=== PATIENT | male | born 1990 | race Caucasian/White ===

== ENCOUNTER → 2023-01-16 23:29 | Outpatient (CLI) | payer MEDICAID, SELFPAY ==
[2023-01-16 17:19] LABS: Basophils # 0.1 K/mm3 (0-0.2); Basophils % 0.7 % (0.1-2.0); Eosinophils # 0.3 K/mm3 (0.0-0.4); Eosinophils % 3.3 % (0.1-12.0); Hematocrit 46.1 % (42.0-52.0); Hemoglobin 15.6 g/dL (14.1-18.0); Lymphocytes # 2.6 K/mm3 (0.7-4.5); Lymphocytes % 27.5 % (10-50); Mean Corpuscular HGB Conc 33.9 g/dL (31.8-35.4); Mean Corpuscular Hemoglobin 30.2 pg (27.0-31.2); Mean Corpuscular Volume 89.2 fl (80-94); Mean Platelet Volume 7.9 fl (7.4-10.4); Monocytes # 0.6 K/mm3 (0.1-1.0); Monocytes % 6.4 % (1.7-9.3); Neutrophils # 5.7 K/mm3 (1.8-7.8); Platelet Count 310 K/mm3 (142-424); Red Blood Count 5.17 M/mm3 (4.60-6.20); Red Cell Distribution Width 12.8 % (11.5-17.5); White Blood Count 9.3 K/mm3 (4.8-10.8)
[2023-01-16 17:59] LABS: Alanine Aminotransferase 16 U/L (12-78); Albumin Level 4.6 g/dl (3.5-5.0); Albumin/Globulin Ratio 1.6 (1.1-1.8); Alkaline Phosphatase 91 U/L (38-126); Anion Gap 13.5 mEq/L (5-15); Aspartate Amino Transferase 26 U/L (17-59); Bilirubin,Total 0.4 mg/dl (0.2-1.3); Blood Urea Nitrogen 11 mg/dl (9-20); Calcium 9.3 mg/dl (8.4-10.2); Carbon Dioxide 29 mmol/L (22.0-30.0); Chloride 103 mmol/L (98-107); Chol/HDL Ratio 7.4 (1-3.5); Cholesterol 207 mg/dl (140-200); Estimated Glomerular Filt Rate 97 ml/min (>60); GFR (African American) 118 ML/MIN (>60); Globulin 2.8 g/dL (1.3-3.2); Glucose 92 mg/dl (74-100); HDL Cholesterol 28 mg/dl (40-60); Potassium 4.5 mmoL/L (3.5-5.1); Sodium 141 mmol/L (136-145); Total Protein,Serum 7.4 g/dl (6.3-8.2); Triglycerides 196 mg/dl (30-150); VLDL Cholesterol 39 mg/dL (0-40)
[2023-01-16 18:10] LABS: Direct LDL Cholesterol 128.48 mg/dL (100-129)
[2023-01-16 18:15] LABS: T4 (Thyroxine) 11.6 ug/dl (5.53-11.0); Triiodothryronine (T3) Uptake 29 % (23.5-40.5)
[2023-01-16 18:29] LABS: Thyroid Stimulating Hormone 1.86 uIU/mL (0.465-4.68); Troponin I < 0.01 ng/ml (0.00-0.034)
[2023-01-16 18:51] LABS: Vitamin B12 685 pg/mL (239-931)
[2023-01-16 19:22] LABS: Hemoglobin A1C 5.2 % (4.0-6.0)
[2023-01-16 19:49] LABS: 25-OH Vitamin D, Total 26.3 ng/mL (30-100)
[2023-01-18 09:53] LABS: Testosterone,Total 728 ng/dL (264-916)
== END ==
PROVIDERS: PCP Nurse Practitioner Family; Visit Provider Nurse Practitioner Family
DX: R55 Syncope and collapse (principal); E55.9 Vitamin D deficiency, unspecified; Z79.899 Other long term (current) drug therapy
CPT/HCPCS: 80053; 80061; 82306; 82607; 83036; 84403; 84436; 84439; 84443; 84479; 84484; 85025

== ENCOUNTER → 2023-01-23 09:12 | Outpatient (CLI) | payer MEDICAID, SELFPAY ==
--- NOTE | 2023-01-23 09:18 | CT_ITS ---
FINAL REPORT TECHNIQUE: Axial CT images were performed through the head. Coronal reformatted images were submitted. This study was performed with techniques to keep radiation doses as low as reasonably achievable (ALARA). Individualized dose reduction techniques using automated exposure control or adjustment of mA and/or kV according to the patient's size were employed. CLINICAL HISTORY: head trauma, fell off porch 1 week ago, hit head and left side of face, possibly blacked out FINDINGS: The ventricles are normal in size. There is no evidence of hemorrhage. There is no mass or edema identified. There is no abnormal extra-axial fluid seen. The sinuses are well aerated. IMPRESSION: No acute intracranial process. Reviewed, Interpreted and Dictated by Beny Campbell MD Transcribed by Yani Smith Authenticated and . [facility]
== END ==
PROVIDERS: PCP Nurse Practitioner Family; Visit Provider Pediatrics
DX: S09.90XA Unspecified injury of head, initial encounter (principal); W19.XXXA Unspecified fall, initial encounter
CPT/HCPCS: 70450

== ENCOUNTER → 2023-02-09 12:49 | Outpatient (CLI) | payer MEDICAID, SELFPAY ==
--- NOTE | 2023-02-09 12:53 | CA_ITS ---
APPROVED REPORT EXAM: Comprehensive 2D, Doppler, and color-flow Echocardiogram Brazing Machine Tender: Carolina Koroma RVT Ht: 5 ft 6 in Wt: 135lbs BSA: 1.69 BP: 108/72 mmHg Indications: SYNCOPE 2D Dimensions LVOT 2.08 cm (M/F) 1.5-2.5 M-Mode Dimensions RVDd 2.22 cm (0.9-2.6) LA Diam 3.09 cm (1.9-4.0) LVDd 4.79 cm (3.5-5.7) Ao Diam 3.08 cm (2.0-3.7) LVDs 3.44 cm (3.5-5.7) IVSd 0.72 cm (0.6-1.1) PWd 0.53 cm (0.6-1.1) EF (Teich) 54.40% FS 28.20% EDV (Teich) 107.00 mL TAPSE 2.13 (<1.7) ESV (Teich) 48.80 mL LV Diastology E Decel Time 217.00 (160-240 msec) E/A Ratio 0.9 MED E' 8.40 (< 7 cm/sec) E'/MED E' Ratio 9.25 (>14) LAT E' 12.40 (<10 cm/sec) E/LAT E' Ratio 6.27 (>14) Aortic Valve AO Peak GR. 5.50 mmHg Mitral Valve MV E Max Rex. 78.00 (40-130 cm/s) MV A Velocity 89.00 (40-130 cm/s) E/A Ratio 0.87 MV Decel. Time 217.00 (160-240 ms) MV PHT 63.00 ms Pulmonary Valve PV Peak Velocity 76.00 (50-150 cm/s) Tricuspid Valve TR P. Velocity 216.00 cm/s RAP Estimate 10.00 mmHg RVSP 28.60 mmHg Left Ventricle The left ventricle is normal size. Left ventricular systolic function is low-normal. There is normal left ventricular wall thickness. There is borderling hypokinesis present. The left ventricular diastolic function is normal. LVEF is 50% Right Ventricle The right ventricle is mildly dilated. The right ventricular systolic function is normal. Atria The left atrium size is normal. The right atrium size is normal. There is no Doppler evidence of interatrial shunt. Aortic Valve The aortic valve opens well. There is no aortic valvular stenosis. No aortic regurgitation is present. Mitral Valve The mitral valve is normal in structure. No evidence of mitral valve stenosis. No Mitral Regurgitation. Tricuspid Valve The tricuspid valve leaflets are thin and pliable. Trace tricuspid regurgitation. There is insufficient TR jet to estimate RVSP. Pulmonic Valve The pulmonary valve is normal in structure. Trace pulmonic regurgitation. Great Vessels The aortic root is normal in size. The ascending aorta is normal in size. IVC is normal in size and collapses >50% with inspiration. Pericardium There is no pericardial effusion. Other Information Study Quality: Fair Conclusion Low-normal LV systolic function (LVEF 50%) Mild RV dilation with normal RV function No significant valvular disease Electronically signed by : Evie Turpin, 02/12/2023 22:12:33
== END ==
PROVIDERS: PCP Nurse Practitioner Family; Visit Provider Nurse Practitioner Family
DX: R55 Syncope and collapse (principal)
CPT/HCPCS: 93306

== ENCOUNTER 2023-09-09 09:40 | Outpatient (CLI) | payer MEDICAID, SELFPAY ==
--- NOTE | 2023-09-09 09:41 | CA_ITS ---
APPROVED REPORT EXAM: Comprehensive 2D, Doppler, and color-flow Echocardiogram Bag Inspector: Francoise Hinkle, [facility], [place], RVS Ht: 5 ft 6 in Wt: 145lbs BSA: 1.74 BP: 110/84 mmHg Indications: Low normal EF 01/2023, Smoker, H/o Syncope 2D Dimensions IVSd 0.71 cm M: 0.6-1.2 LVEF (Visual) 55.80 % PWd 0.90 cm M: 0.6 - 1.2 LA Volume 28.30 mL LVDd 5.41 cm M: 4.2 - 5.9 LA Volume Index 16.17 mL/m2 (M/F) 16-34 LVDs 3.82 cm M: 2.5 - 4.0 M-Mode Dimensions RVDd 2.32 cm (0.9-2.6) LA Diam 3.08 cm (1.9-4.0) LVDd 4.35 cm (3.5-5.7) LVDs 3.79 cm (3.5-5.7) IVSd 0.91 cm (0.6-1.1) PWd 0.66 cm (0.6-1.1) EF (Teich) 43.80% EPSs 0.19 cm FS 21.70% EDV (Teich) 109.60 mL TAPSE 2.22 (<1.7) ESV (Teich) 61.60 mL LV Diastology E Decel Time 270 (160-240 msec) E/A Ratio 0.87 MED A' 12.00 cm/s LAT A' 11.00 cm/s Aortic Valve AoV Peak Rex. 136.0 (50-130 cm/s) AO Peak GR. 7.40 mmHg AO Mean GR. 4.30 (<5 mmHg) AO VTI 26.1 (18-25 cm) Mitral Valve MV A Velocity 93.0 (40-130 cm/s) E/A Ratio 0.87 Tricuspid Valve TR P. Velocity 234.00 cm/s RAP Estimate 10.00 mmHg RVSP 31.90 mmHg Left Ventricle The left ventricle is normal size. The left ventricular systolic function is normal. The left ventricular ejection fraction is within the normal range. There is normal left ventricular wall thickness. There is normal LV segmental wall motion. The left ventricular diastolic function is normal. LVEF is 55%. Right Ventricle The right ventricle is normal size. The right ventricular systolic function is normal. Atria The left atrium size is normal. The right atrium size is normal. There is no Doppler evidence of interatrial shunt. Aortic Valve The aortic valve is normal in structure. There is no aortic valvular stenosis. No aortic regurgitation is present. Mitral Valve The mitral valve is normal in structure. No evidence of mitral valve stenosis. Trace mitral regurgitation. Tricuspid Valve The tricuspid valve leaflets are thin and pliable. Mild tricuspid regurgitation. RVSP is 20-25 mmHg. Pulmonic Valve The pulmonary valve is normal in structure. Trace pulmonic regurgitation. Great Vessels The aortic root is normal in size. The ascending aorta is not well-visualized. IVC is normal in size and collapses >50% with inspiration. Pericardium There is no pericardial effusion. Other Information Study Quality: Adequate Conclusion Normal biventricular systolic function. Mild TR. Electronically signed by : Evie Turpin MD 09/11/2023 23:12:51
== END 2023-09-09 23:59 ==
LOC: RT 09:41
PROVIDERS: PCP Nurse Practitioner Family; Visit Provider Nurse Practitioner Family
DX: R55 Syncope and collapse (principal)
CPT/HCPCS: 93306